=== PATIENT | female | born 1965 | race Caucasian/White ===

== ENCOUNTER → 2021-05-19 | Day surgery (SDC) | payer OTHER ==
[2021-05-15 15:22] LABS: INTERNATIONAL NORM RATIO 1.4 (2.0-3.5)
[2021-05-19] VITALS (10 sets, daily range): BP systolic 143–198; BP diastolic 84–116
[~2021-05-19] VITALS: Ht 154.9 cm; Wt 61.2 kg
[~2021-05-19] MED LIST: CARVEDILOL12.5 MG PO; CLEOCIN HCL150 MG PO; Elocon 0.1% Cre15 GM T; GABAPENTIN400 MG PO; HYDRALAZINE HYD50 MG PO; HYDROCODONE-AC1 EAC1 PO; LEVOTHYROXINE125 MCG PO; LEVOTHYROXINE150 MCG PO; Synthroid,Lev150 MCG PO; XARE20MG PO
== END | disposition home or self-care (01) ==
LOC: SDC 05-15 13:15
PROVIDERS: ATTEND Dentist General Practice
DX: K02.9 Dental caries, unspecified (principal); F41.9 Anxiety disorder, unspecified; I10 Essential (primary) hypertension; I48.91 Unspecified atrial fibrillation; Z86.19 Personal history of other infectious and parasitic diseases; Z20.822 Contact with and (suspected) exposure to COVID-19